=== PATIENT | male | born 1955 | race African-American/Black ===

== ENCOUNTER 2017-05-12 10:32 | Emergency (ER) | payer MEDICAID ==
[~2017-05-12] VITALS: Ht 162.6 cm; Wt 79.8 kg
[~2017-05-12 10:32] MED LIST: ASPI81TA43 PO; CARI250T PO; GLIP-115 PO; METO25TA5 PO; NIFEDICAL XL PO; OXYC10TA44 PO; PRAVASTATIN PO; RANI-226 PO
[2017-05-12 13:16] VITALS: BP 119/71
== END 2017-05-12 13:38 | disposition home or self-care (01) ==
LOC: ER 10:32
DX: R05 Cough (principal); R06.02 Shortness of breath; R50.9 Fever, unspecified; R51 Headache; J44.9 Chronic obstructive pulmonary disease, unspecified; E11.9 Type 2 diabetes mellitus without complications; I10 Essential (primary) hypertension; I25.2 Old myocardial infarction; E78.5 Hyperlipidemia, unspecified; F17.210 Nicotine dependence, cigarettes, uncomplicated; Z95.1 Presence of aortocoronary bypass graft; Z95.0 Presence of cardiac pacemaker
CPT/HCPCS: 71046

== ENCOUNTER → 2018-11-05 | Outpatient (CLI) | payer OTHER, MEDICAID ==
[~2018-11-05] VITALS: Ht 167.6 cm; Wt 81.6 kg
[~2018-11-05] MED LIST changes: -GLIP-115 PO; +GLIP5TAB12 PO
== END | disposition home or self-care (01) ==
LOC: Rad HDHVI 07:57
PROVIDERS: ATTEND Internal Medicine Cardiovascular Disease
DX: R07.9 Chest pain, unspecified (principal); M54.9 Dorsalgia, unspecified
CPT/HCPCS: 78472; 96374; 96375; A9505

== ENCOUNTER 2020-02-04 14:46 | Emergency (ER) | payer OTHER, MEDICAID ==
[~2020-02-04] VITALS: Ht 167.6 cm; Wt 83.9 kg
[2020-02-04 14:52] VITALS: BP 122/82
[2020-02-04 15:39] LABS: Albumin 3.9 g/dL (3.4-5.0); Calcium 8.5 mg/dL (8.5-10.1); Chloride 110 mmol/L (98-107); Potassium 4.2 mmol/L (3.5-5.1); Sodium 139 mmol/L (136-145)
[2020-02-04 15:42] LABS: Basophils # (auto) 0 10 ^3/uL (0-0.2); Basophils % (auto) 0.7 % (0.0-2.0); Eosinophils # (auto) 0.1 10 ^3/uL (0-0.8); Eosinophils % (auto) 2.1 % (0.0-7.0); Hematocrit 42.5 % (41.0-53.0); Hemoglobin 14.6 g/dL (13.5-17.5); Lymphocytes % (auto) 46.2 % (10.0-50.0); Mean Corpuscular Hemoglobin 32.5 pg (28.0-32.0); Mean Corpuscular Hgb Conc. 34.5 g/dL (32.0-36.0); Mean Corpuscular Volume 94.3 fL (80.0-100.0); Monocytes # (auto) 0.5 10 ^3/uL (0-1.3); Monocytes % (auto) 10.6 % (0.0-12.0); Neutrophils # (auto) 1.7 10 ^3/uL (1.6-8.6); Neutrophils % (auto) 40.4 % (37.0-80.0); Nucleated Red Blood Cells % 0.4 %; Platelet Count (auto) 217 10^3/uL (140-450); Red Cell Distribution Width 13.8 % (11.8-14.3); White Blood Cell 4.3 10^3/uL (4.4-10.8)
[2020-02-04 15:47] LABS: Alanine Aminotransferase 19 U/L (16-61); Alkaline Phosphatase 81 U/L (45-117); Anion Gap 5 (5-15); Aspartate Aminotransferase 14 U/L (15-37); BUN/Creatinine Ratio 10.8; Bilirubin, Total 0.4 mg/dL (0.2-1.0); Blood Urea Nitrogen 13 mg/dL (7-18); Carbon Dioxide 24 mmol/L (21-32); GFR African American 78 mL/min; GFR Non-African American 64 mL/min; Glucose 107 mg/dL (74-106); Magnesium 2.3 mg/dL (1.6-2.6); Total Protein 7.6 g/dL (6.4-8.2)
== END 2020-02-04 17:39 | disposition left against medical advice (07) ==
LOC: EDBD 14:46 → EDUNIT# 14:46 → ER 14:46
DX: I50.33 Acute on chronic diastolic (congestive) heart failure (principal); I24.9 Acute ischemic heart disease, unspecified; I10 Essential (primary) hypertension; J44.9 Chronic obstructive pulmonary disease, unspecified; E78.5 Hyperlipidemia, unspecified; F17.210 Nicotine dependence, cigarettes, uncomplicated; Z98.61 Coronary angioplasty status; Z88.0 Allergy status to penicillin
CPT/HCPCS: 36415; 71045; 80053; 83735; 84484; 85025; 93005; 99291

== ENCOUNTER 2021-10-10 09:54 | Inpatient (IN) | payer OTHER, MEDICAID ==
[~2021-10-10] VITALS: Ht 162.6 cm; Wt 85.5 kg
[2021-10-10 10:34] LABS: Basophils # (auto) 0.1 10 ^3/uL (0-0.2); Basophils % (auto) 1.3 % (0.0-2.0); Eosinophils # (auto) 0.1 10 ^3/uL (0-0.8); Eosinophils % (auto) 1.1 % (0.0-7.0); Hematocrit 45.6 % (41.0-53.0); Lymphocytes # (auto) 2.4 10 ^3/uL (0.4-5.4); Lymphocytes % (auto) 39.8 % (10.0-50.0); Mean Corpuscular Hemoglobin 32.1 pg (28.0-32.0); Mean Corpuscular Volume 91.7 fL (80.0-100.0); Monocytes # (auto) 0.5 10 ^3/uL (0-1.3); Monocytes % (auto) 7.7 % (0.0-12.0); Neutrophils % (auto) 50.1 % (37.0-80.0); Nucleated Red Blood Cells % 0.1 %; Red Blood Cells 4.97 10^6/uL (4.5-5.90); Red Cell Distribution Width 13.5 % (11.8-14.3)
[2021-10-10 10:50] LABS: Partial Thromboplastin Time 26.2 sec (23.6-33.0)
[2021-10-10] MEDS ORDERED: ONDANSETRON HCL 4 MG/2 ML VIAL IV ONE (11:15)
[2021-10-10] MEDS ORDERED: MORPHINE SULFATE 4 MG/ML SYR/VIAL IV ONE (11:15)
[2021-10-10 11:55] LABS: Albumin 3.7 g/dL (3.4-5.0); Calcium 8.8 mg/dL (8.5-10.1)
[2021-10-10 11:58] LABS: BUN/Creatinine Ratio 12.3; Bilirubin, Total 0.2 mg/dL (0.2-1.0); Total Protein 8.1 g/dL (6.4-8.2)
[2021-10-10] MEDS ORDERED: IOHEXOL 350 MG/ML 100ML IJ ONE (16:13)
[2021-10-10] MEDS ORDERED: MORPHINE SULFATE INJ 2 MG/ml SYRG IV PRN ×2 (16:15→19:15)
[2021-10-10] MEDS ORDERED: LABETALOL HCL 5 MG/ML 4ML SYRINGE IV ONE (16:15)
[2021-10-10] MEDS ORDERED: NITROGLYCERIN 0.4 MG SL TAB SL PRN (16:15)
[2021-10-10] MEDS ORDERED: DEXTROSE (50%) 50ML SYRG IV PRN (19:15)
[2021-10-10] MEDS ORDERED: ONDANSETRON HCL 4 MG/2 ML VIAL IV PRN (19:15)
[2021-10-10] MEDS ORDERED: PROMETHAZINE-DM 5 ML ORAL SYRUP PO PRN (19:15)
[2021-10-10] MEDS ORDERED: LABETALOL HCL 5 MG/ML 4ML SYRINGE IV PRN (19:15)
[2021-10-10] MEDS ORDERED: DOCUSATE SOD 100 MG CAP PO PRN (19:15)
[2021-10-10] MEDS ORDERED: BENAZEPRIL HCL 10 MG TAB PO ONE (19:15)
[2021-10-10] MEDS ORDERED: LORazepam 0.5 MG TAB PO PRN (19:15)
[2021-10-10] MEDS ORDERED: METOPROLOL SUCCINATE XL 50 MG TAB PO ONE (19:15)
[2021-10-10 19:47] LABS: Magnesium 2.3 mg/dL (1.6-2.6); Phosphorus 2.9 mg/dL (2.5-4.90)
[2021-10-10 20:49] LABS: INR 1.04 (0.9-1.15); Partial Thromboplastin Time 27.6 sec (23.6-33.0)
[2021-10-10] MEDS: ACETAMINOPHEN 325 MG TAB PO PRN (20:53)
[2021-10-10 21:44] VITALS: BP 164/87
[2021-10-10] MEDS: InsuLIN REG 1unit/0.01ml Soln (100units/ml) SC SCH (22:00)
[2021-10-10] MEDS: ATORVASTATIN 20 MG TAB PO SCH (22:06)
[2021-10-10] MEDS: ACCU-CHEK COMFORT CURVE STRIP VI SCH (22:06)
[2021-10-10] MEDS: hydrALAZINE HCL 20 MG/ML VL IV PRN (22:06)
[2021-10-10] MEDS: IPRATROPIUM BROM 0.5 MG/2.5ML INH SOL NEB SCH (22:06)
[2021-10-10] MEDS: HYDROcodone-ACET 5/325MG TAB PO PRN (22:14)
[2021-10-10 22:34] VITALS: BP 164/87
[2021-10-11] VITALS (7 sets, daily range): BP systolic 132–154; BP diastolic 69–95
[2021-10-11] MEDS: IPRATROPIUM BROM 0.5 MG/2.5ML INH SOL NEB SCH ×6 (02:00→22:45)
[2021-10-11 06:26] LABS: Potassium 3.8 mmol/L (3.5-5.1)
[2021-10-11 06:31] LABS: INR 1.08 (0.9-1.15); Partial Thromboplastin Time 29.4 sec (23.6-33.0)
[2021-10-11] MEDS: InsuLIN REG 1unit/0.01ml Soln (100units/ml) SC SCH ×4 (06:31→21:12)
[2021-10-11] MEDS: ACCU-CHEK COMFORT CURVE STRIP VI SCH ×4 (06:31→22:07)
[2021-10-11 06:37] LABS: Albumin 3.2 g/dL (3.4-5.0); BUN/Creatinine Ratio 11.3; Bilirubin, Total 0.4 mg/dL (0.2-1.0); CRP High Sensitivity 0.57 mg/dL (< 0.3); Calcium 8.3 mg/dL (8.5-10.1); Phosphorus 3.2 mg/dL (2.5-4.90); Uric Acid 6.3 mg/dL (3.5-7.2)
[2021-10-11] MEDS: HYDROcodone-ACET 5/325MG TAB PO PRN (06:40)
[2021-10-11 06:57] LABS: Basophils # (auto) 0.1 10 ^3/uL (0-0.2); Basophils % (auto) 1.5 % (0.0-2.0); Eosinophils # (auto) 0.1 10 ^3/uL (0-0.8); Eosinophils % (auto) 1.3 % (0.0-7.0); Hematocrit 43.2 % (41.0-53.0); Hemoglobin 15.1 g/dL (13.5-17.5); Lymphocytes # (auto) 2.6 10 ^3/uL (0.4-5.4); Lymphocytes % (auto) 49.1 % (10.0-50.0); Mean Corpuscular Hgb Conc. 34.9 g/dL (32.0-36.0); Mean Corpuscular Volume 91.5 fL (80.0-100.0); Monocytes # (auto) 0.5 10 ^3/uL (0-1.3); Monocytes % (auto) 8.9 % (0.0-12.0); Neutrophils # (auto) 2.1 10 ^3/uL (1.6-8.6); Neutrophils % (auto) 39.2 % (37.0-80.0); Nucleated Red Blood Cells % 0.1 %; Red Blood Cells 4.71 10^6/uL (4.5-5.90); White Blood Cell 5.4 10^3/uL (4.4-10.8)
[2021-10-11] MEDS: ASPirin-EC 81 mg tab PO SCH (09:26)
[2021-10-11] MEDS: METOPROLOL SUCCINATE XL 50 MG TAB PO SCH (09:27)
[2021-10-11] MEDS: ENOXAPARIN SOD 40 MG/0.4 ML SYRINGE SC SCH (09:28)
[2021-10-11] MEDS: BENAZEPRIL HCL 10 MG TAB PO SCH (09:28)
[2021-10-11] MEDS ORDERED: FAMOTIDINE (10MG/ML) 2ML VL IV SCH (10:00)
[2021-10-11 10:03] LABS: Urine Bacteria NONE SEEN /hpf (None Seen); Urine Blood Negative /uL (Negative); Urine Specific Gravity 1.029 (1.001-1.035); Urine WBC 3 /hpf (0 - 3)
[2021-10-11 10:14] LABS: Alcohol, Urine < 3.0 mg/dL (0-10); Amphetamine Screen, Urine NEGATIVE (NEGATIVE); Barbiturate Scree,Urine NEGATIVE (NEGATIVE); Benzodiazephine Screen, Urine NEGATIVE (NEGATIVE); Cannabinoid Screen, Urine NEGATIVE (NEGATIVE); Cocaine Screen, Urine NEGATIVE (NEGATIVE); Opiate Scree,Urine POSITIVE (NEGATIVE); Phencyclidine Screen, Urine NEGATIVE (NEGATIVE); Protein, Urine 13.3 mg/dL (0.0-11.9)
[2021-10-11] MEDS ORDERED: CLOP75TA70 PO (15:57)
[2021-10-11] MEDS ORDERED: PREG75CA PO (16:00)
[2021-10-11] MEDS ORDERED: ATOR40TA52 PO (16:00)
[2021-10-11] MEDS ORDERED: CIPR250T3 PO (16:01)
[2021-10-11] MEDS ORDERED: NIFE1TAB30 PO (16:01)
[2021-10-11] MEDS ORDERED: NITR0.4S29 SL (16:04)
[2021-10-11] MEDS ORDERED: ZONI25CA3 PO (16:06)
[2021-10-11] MEDS ORDERED: PERCOT PO (16:06)
[2021-10-11] MEDS ORDERED: ISOS1TAB28 PO (16:07)
[2021-10-11] MEDS ORDERED: FURO40TA4 PO (16:07)
[2021-10-11] MEDS ORDERED: DICY20TA PO (16:08)
[2021-10-11] MEDS: RANOLAZINE ER 500 MG TAB PO SCH ×2 (16:38→21:12)
[2021-10-11] MEDS: ACETAMINOPHEN 325 MG TAB PO PRN (21:12)
[2021-10-11] MEDS: ATORVASTATIN 20 MG TAB PO SCH (21:14)
[2021-10-11] MEDS: hydrALAZINE HCL 20 MG/ML VL IV PRN (22:07)
[2021-10-12 04:49] VITALS: BP 130/76
[2021-10-12] MEDS: IPRATROPIUM BROM 0.5 MG/2.5ML INH SOL NEB SCH ×4 (05:48→14:00)
[2021-10-12] MEDS: InsuLIN REG 1unit/0.01ml Soln (100units/ml) SC SCH ×2 (06:00→11:30)
[2021-10-12] MEDS: ACCU-CHEK COMFORT CURVE STRIP VI SCH ×2 (06:00→11:40)
[2021-10-12 06:02] LABS: Calcium 8.3 mg/dL (8.5-10.1)
[2021-10-12 06:05] LABS: BUN/Creatinine Ratio 12.4
[2021-10-12 08:00] VITALS: BP 142/74
[2021-10-12] MEDS: RANOLAZINE ER 500 MG TAB PO SCH (09:50)
[2021-10-12] MEDS: METOPROLOL SUCCINATE XL 50 MG TAB PO SCH (09:51)
[2021-10-12] MEDS: ASPirin-EC 81 mg tab PO SCH (09:51)
[2021-10-12] MEDS: BENAZEPRIL HCL 10 MG TAB PO SCH (09:51)
[2021-10-12] MEDS: HYDROcodone-ACET 5/325MG TAB PO PRN (09:53)
[2021-10-12] MEDS: ENOXAPARIN SOD 40 MG/0.4 ML SYRINGE SC SCH (09:53)
[2021-10-12 12:00] VITALS: BP 146/87
[2021-10-12] MEDS ORDERED: RANO500T2 PO (12:25)
[2021-10-12 14:26] VITALS: BP 146/87
== END 2021-10-12 15:25 | disposition home or self-care (01) | DRG 302 ==
LOC: ER 09:54 → TELE 16:08 → TELE-EAST 21:10
PROVIDERS: ADMIT Hospitalist; ATTEND Internal Medicine
DX: I25.810 Atherosclerosis of coronary artery bypass graft(s) without angina pectoris (principal); I50.43 Acute on chronic combined systolic (congestive) and diastolic (congestive) heart failure; I11.0 Hypertensive heart disease with heart failure; E78.5 Hyperlipidemia, unspecified; K21.9 Gastro-esophageal reflux disease without esophagitis; E66.9 Obesity, unspecified; I25.5 Ischemic cardiomyopathy; E11.9 Type 2 diabetes mellitus without complications; M79.602 Pain in left arm; Z20.822 Contact with and (suspected) exposure to COVID-19; J43.9 Emphysema, unspecified; F17.210 Nicotine dependence, cigarettes, uncomplicated; Z82.49 Family history of ischemic heart disease and other diseases of the circulatory system; I25.2 Old myocardial infarction; Z79.84 Long term (current) use of oral hypoglycemic drugs; Z80.42 Family history of malignant neoplasm of prostate; Z83.3 Family history of diabetes mellitus; Z95.0 Presence of cardiac pacemaker; Z98.61 Coronary angioplasty status; Z79.899 Other long term (current) drug therapy; Z88.0 Allergy status to penicillin; Z68.32 Body mass index [BMI] 32.0-32.9, adult
CPT/HCPCS: 36415; 71045; 71275; 80048; 80053; 80061; 80307; 81001; 82550; 82728; 82962; 83036; 83615; 83690; 83735; 83880; 84100; 84156; 84439; 84443; 84484; 84550; 85025; 85379; 85610; 85652; 85730; 86141; 87040; 87077; 93005; 93306; 94640; 96374; 96375; G0378; J2405; J3490

== ENCOUNTER 2022-07-09 06:59 | Day surgery (SDC) | payer OTHER, MEDICAID ==
[~2022-07-09] VITALS: Ht 162.6 cm; Wt 83.5 kg
[2022-07-09] VITALS (8 sets, daily range): BP systolic 99–120; BP diastolic 62–77
[~2022-07-09 06:59] MED LIST changes: -ASPI81TA43 PO; +ATOR40TA52 PO; +BACL10TA PO; -CARI250T PO; +CLOP75TA70 PO; +FURO40TA4 PO; -GLIP5TAB12 PO; +METO-158 PO; -METO25TA5 PO; +NIFE1TAB30 PO; -NIFEDICAL XL PO; -PRAVASTATIN PO; +PREG75CA PO; -RANI-226 PO
[2022-07-09] MEDS ORDERED: VERAPAMIL 2.5MG/ML INJ 2ML VIAL IV ONE (07:42)
[2022-07-09] MEDS ORDERED: ANGIOMAX 250 MG VIAL IV ONE (07:42)
[2022-07-09] MEDS ORDERED: HEPARIN SODIUM (PORCINE) 5000 UNITS/ML 1ML VIAL ONE (07:42)
[2022-07-09] MEDS ORDERED: fentaNYL CITRATE 100 MCG/2 ML VL ONE ×2 (07:43→08:59)
[2022-07-09] MEDS ORDERED: LIDOCAINE 2%HCL (LOCAL ANESTH.) INJ 10ml MDV ONE (07:43)
[2022-07-09] MEDS ORDERED: MIDAZOLAM HCL 2MG/2ML 2ml VIAL (1mg/ml) ONE ×2 (07:43→08:59)
[2022-07-09] MEDS ORDERED: SODIUM CHL 0.9% 0 ML ONE (07:43)
[2022-07-09] MEDS ORDERED: IODIXANOL 320MG/ML 100ML BTL IV ONE ×4 (07:44→08:50)
== END 2022-07-09 11:08 | disposition home or self-care (01) ==
LOC: CATH 06:59
PROVIDERS: ATTEND Internal Medicine Cardiovascular Disease
DX: R94.39 Abnormal result of other cardiovascular function study (principal); I25.10 Atherosclerotic heart disease of native coronary artery without angina pectoris; I25.5 Ischemic cardiomyopathy; I11.0 Hypertensive heart disease with heart failure; I50.9 Heart failure, unspecified; E78.5 Hyperlipidemia, unspecified; Z20.822 Contact with and (suspected) exposure to COVID-19; Z79.899 Other long term (current) drug therapy; Z98.890 Other specified postprocedural states; J43.9 Emphysema, unspecified; Z95.0 Presence of cardiac pacemaker; Z95.1 Presence of aortocoronary bypass graft
CPT/HCPCS: 93459; C1894; J1644; J2001; J2250; J3010; Q9967; U0003; 93005; 99152; 99153

== ENCOUNTER 2022-07-12 20:17 | Inpatient (IN) | payer OTHER, MEDICAID ==
[~2022-07-12] VITALS: Ht 162.6 cm; Wt 84.0 kg
[2022-07-12] MEDS ORDERED: ONDANSETRON HCL 4 MG/2 ML VIAL IV ONE (20:45)
[2022-07-12] MEDS ORDERED: MORPHINE SULFATE 4 MG/ML SYR/VIAL IV ONE (20:45)
[2022-07-12] MEDS ORDERED: IOHEXOL 300 MG/ML 100ML BOTTLE IJ ONE (20:51)
[2022-07-12 21:07] LABS: Basophils # (auto) 0.1 10 ^3/uL (0-0.2); Basophils % (auto) 0.8 % (0.0-2.0); Eosinophils # (auto) 0 10 ^3/uL (0-0.8); Eosinophils % (auto) 0.4 % (0.0-7.0); Hematocrit 44.7 % (41.0-53.0); Hemoglobin 15.7 g/dL (13.5-17.5); Lymphocytes # (auto) 1.7 10 ^3/uL (0.4-5.4); Lymphocytes % (auto) 25.1 % (10.0-50.0); Mean Corpuscular Hemoglobin 32.3 pg (28.0-32.0); Mean Corpuscular Hgb Conc. 35.1 g/dL (32.0-36.0); Mean Corpuscular Volume 91.9 fL (80.0-100.0); Monocytes # (auto) 0.5 10 ^3/uL (0-1.3); Monocytes % (auto) 7.7 % (0.0-12.0); Neutrophils # (auto) 4.5 10 ^3/uL (1.6-8.6); Nucleated Red Blood Cells % 0.2 %; Red Blood Cells 4.86 10^6/uL (4.5-5.90); Red Cell Distribution Width 13.3 % (11.8-14.3); White Blood Cell 6.8 10^3/uL (4.4-10.8)
[2022-07-12 21:19] LABS: Albumin 3.4 g/dL (3.4-5.0); Calcium 8.7 mg/dL (8.5-10.1); Magnesium 2.1 mg/dL (1.6-2.6)
[2022-07-12 21:23] LABS: BUN/Creatinine Ratio 14.7; Bilirubin, Total 0.3 mg/dL (0.2-1.0); Total Protein 7.8 g/dL (6.4-8.2)
[2022-07-13] MEDS ORDERED: HEPARIN SODIUM (PORCINE) 5000 UNITS/ML 1ML VIAL IV ONE (00:15)
[2022-07-13 01:12] LABS: INR 1.01 (0.9-1.15)
[2022-07-13] MEDS: HEPARIN DRIP/D5W 100UNITS/ML 250 ML IV SCH (01:15)
[2022-07-13] MEDS ORDERED: ONDANSETRON HCL 4 MG/2 ML VIAL IV ONE (01:30)
[2022-07-13] MEDS ORDERED: MORPHINE SULFATE 4 MG/ML SYR/VIAL IV ONE (01:30)
[2022-07-13] MEDS ORDERED: ACETAMINOPHEN 325 MG TAB PO PRN (03:00)
[2022-07-13] MEDS ORDERED: HYDROcodone-ACET 5/325MG TAB PO PRN (03:00)
[2022-07-13] MEDS ORDERED: DEXTROSE (50%) 50ML SYRG IV PRN (03:00)
[2022-07-13] MEDS ORDERED: DOCUSATE SOD 100 MG CAP PO PRN (03:00)
[2022-07-13] MEDS ORDERED: hydrALAZINE HCL 20 MG/ML VL IV PRN (03:00)
[2022-07-13] MEDS: SODIUM CHLORIDE 0.9% 1,000 ML IV SCH ×3 (03:22→23:25)
[2022-07-13 04:06] LABS: Basophils # (auto) 0.2 10 ^3/uL (0-0.2); Basophils % (auto) 2.4 % (0.0-2.0); Eosinophils # (auto) 0.1 10 ^3/uL (0-0.8); Eosinophils % (auto) 0.6 % (0.0-7.0); Hematocrit 41.2 % (41.0-53.0); Hemoglobin 14.7 g/dL (13.5-17.5); Lymphocytes # (auto) 3.1 10 ^3/uL (0.4-5.4); Mean Corpuscular Hemoglobin 32.8 pg (28.0-32.0); Mean Corpuscular Hgb Conc. 35.7 g/dL (32.0-36.0); Mean Corpuscular Volume 91.8 fL (80.0-100.0); Monocytes # (auto) 0.7 10 ^3/uL (0-1.3); Monocytes % (auto) 8.2 % (0.0-12.0); Neutrophils # (auto) 4.4 10 ^3/uL (1.6-8.6); Neutrophils % (auto) 51.8 % (37.0-80.0); Nucleated Red Blood Cells % 0.1 %; Red Blood Cells 4.48 10^6/uL (4.5-5.90); Red Cell Distribution Width 13.4 % (11.8-14.3); White Blood Cell 8.4 10^3/uL (4.4-10.8)
[2022-07-13] MEDS ORDERED: NITROGLYCERIN 0.4 MG SL TAB SL PRN (04:30)
[2022-07-13] MEDS ORDERED: MORPHINE SULFATE INJ 2 MG/ml SYRG IV PRN (04:30)
[2022-07-13 04:31] LABS: Albumin 3.2 g/dL (3.4-5.0); BUN/Creatinine Ratio 12.4; Calcium 8.7 mg/dL (8.5-10.1); Potassium 4.3 mmol/L (3.5-5.1)
[2022-07-13 04:34] LABS: Bilirubin, Total 0.3 mg/dL (0.2-1.0); Total Protein 7.3 g/dL (6.4-8.2)
[2022-07-13] MEDS: InsuLIN REG 1unit/0.01ml Soln (100units/ml) SC SCH ×4 (06:07→22:00)
[2022-07-13] MEDS: ACCU-CHEK COMFORT CURVE STRIP VI SCH ×4 (06:07→23:28)
[2022-07-13] MEDS: ONDANSETRON HCL 4 MG/2 ML VIAL IV PRN ×2 (08:33→20:14)
[2022-07-13] MEDS: MORPHINE SULFATE INJ 2 MG/ml SYRG IV PRN ×2 (08:35→20:14)
[2022-07-13 14:16] LABS: INR 1.03 (0.9-1.15); Partial Thromboplastin Time 58.1 sec (24.6-33.4)
[2022-07-13] MEDS ORDERED: BACLOFEN 10 MG TAB PO PRN (17:15)
[2022-07-13 20:38] LABS: INR 1.03 (0.9-1.15); Partial Thromboplastin Time 54.7 sec (24.6-33.4)
[2022-07-13] MEDS ORDERED: ASPI-378 PO (21:54)
[2022-07-13 22:00] VITALS: BP 154/72
[2022-07-13] MEDS ORDERED: ATORVASTATIN 20 MG TAB PO SCH (22:00)
[2022-07-13] MEDS: PREGABALIN CAPSULE 75 MG CAP PO SCH (22:00)
[2022-07-13] MEDS: ATORVASTATIN 20 MG TAB PO SCH (23:26)
[2022-07-13] MEDS: METOPROLOL TARTRATE 50 MG TAB PO SCH (23:28)
[2022-07-14] MEDS: HEPARIN DRIP/D5W 100UNITS/ML 250 ML IV SCH (00:15)
[2022-07-14 05:00] VITALS: BP 130/66
[2022-07-14] MEDS: SODIUM CHLORIDE 0.9% 1,000 ML IV SCH (05:00)
[2022-07-14] MEDS: InsuLIN REG 1unit/0.01ml Soln (100units/ml) SC SCH ×4 (07:00→22:00)
[2022-07-14] MEDS: ACCU-CHEK COMFORT CURVE STRIP VI SCH ×4 (07:00→22:00)
[2022-07-14 08:00] VITALS: BP 147/70
[2022-07-14] MEDS: MORPHINE SULFATE INJ 2 MG/ml SYRG IV PRN (08:09)
[2022-07-14] MEDS: METOPROLOL TARTRATE 50 MG TAB PO SCH ×2 (08:09→21:59)
[2022-07-14] MEDS: PANTOPRAZOLE 40 MG TAB PO SCH (08:09)
[2022-07-14] MEDS: NIFEdipine ER 30 MG TAB PO SCH (08:10)
[2022-07-14] MEDS: PREGABALIN CAPSULE 75 MG CAP PO SCH ×2 (08:10→21:59)
[2022-07-14 08:28] LABS: Basophils # (auto) 0 10 ^3/uL (0-0.2); Basophils % (auto) 0.7 % (0.0-2.0); Eosinophils # (auto) 0.1 10 ^3/uL (0-0.8); Eosinophils % (auto) 1.9 % (0.0-7.0); Hematocrit 40.7 % (41.0-53.0); Hemoglobin 13.9 g/dL (13.5-17.5); Lymphocytes # (auto) 2.3 10 ^3/uL (0.4-5.4); Lymphocytes % (auto) 45.5 % (10.0-50.0); Mean Corpuscular Hemoglobin 32.3 pg (28.0-32.0); Mean Corpuscular Hgb Conc. 34.2 g/dL (32.0-36.0); Mean Corpuscular Volume 94.3 fL (80.0-100.0); Monocytes # (auto) 0.5 10 ^3/uL (0-1.3); Monocytes % (auto) 9.7 % (0.0-12.0); Neutrophils # (auto) 2.2 10 ^3/uL (1.6-8.6); Neutrophils % (auto) 42.2 % (37.0-80.0); Nucleated Red Blood Cells % 0.1 %; Red Blood Cells 4.31 10^6/uL (4.5-5.90); Red Cell Distribution Width 13.1 % (11.8-14.3); White Blood Cell 5.2 10^3/uL (4.4-10.8)
[2022-07-14 08:52] LABS: Albumin 3.1 g/dL (3.4-5.0); BUN/Creatinine Ratio 12.3; Bilirubin, Total 0.4 mg/dL (0.2-1.0); Calcium 8.3 mg/dL (8.5-10.1); Total Protein 6.7 g/dL (6.4-8.2)
[2022-07-14 09:06] LABS: INR 1.01 (0.9-1.15)
[2022-07-14 09:16] LABS: Partial Thromboplastin Time 106.1 sec (24.6-33.4)
[2022-07-14] MEDS ORDERED: HEPARIN DRIP/D5W 100UNITS/ML 250 ML IV SCH ×2 (10:30→17:00)
[2022-07-14 11:53] VITALS: BP 131/68
[2022-07-14] MEDS: OXYCODONE W/ ACETAMINOPHEN 5/325MG TABLET PO PRN (15:39)
[2022-07-14 16:00] VITALS: BP 123/55
[2022-07-14 16:06] LABS: INR 1.02 (0.9-1.15); Partial Thromboplastin Time 32.4 sec (24.6-33.4)
[2022-07-14] MEDS ORDERED: HEPARIN SODIUM (PORCINE) 5000 UNITS/ML 1ML VIAL IV ONE (17:00)
[2022-07-14 22:00] VITALS: BP 108/61
[2022-07-14] MEDS: ATORVASTATIN 20 MG TAB PO SCH (22:00)
[2022-07-15 01:36] LABS: INR 1.01 (0.9-1.15)
[2022-07-15 01:40] LABS: Partial Thromboplastin Time > 139.0 sec (24.6-33.4)
[2022-07-15] MEDS: OXYCODONE W/ ACETAMINOPHEN 5/325MG TABLET PO PRN ×2 (01:53→20:23)
[2022-07-15] MEDS ORDERED: HEPARIN DRIP/D5W 100UNITS/ML 250 ML IV SCH (02:40)
[2022-07-15 05:00] VITALS: BP 120/68
[2022-07-15 05:27] LABS: Basophils # (auto) 0.1 10 ^3/uL (0-0.2); Basophils % (auto) 1.1 % (0.0-2.0); Eosinophils # (auto) 0.2 10 ^3/uL (0-0.8); Hematocrit 38.1 % (41.0-53.0); Hemoglobin 13.4 g/dL (13.5-17.5); Lymphocytes # (auto) 2.6 10 ^3/uL (0.4-5.4); Lymphocytes % (auto) 49.2 % (10.0-50.0); Mean Corpuscular Hemoglobin 32.4 pg (28.0-32.0); Mean Corpuscular Hgb Conc. 35.2 g/dL (32.0-36.0); Mean Corpuscular Volume 92.1 fL (80.0-100.0); Monocytes # (auto) 0.6 10 ^3/uL (0-1.3); Monocytes % (auto) 11.6 % (0.0-12.0); Neutrophils # (auto) 1.8 10 ^3/uL (1.6-8.6); Neutrophils % (auto) 35.1 % (37.0-80.0); Nucleated Red Blood Cells % 0.3 %; Red Blood Cells 4.13 10^6/uL (4.5-5.90); Red Cell Distribution Width 13.2 % (11.8-14.3); White Blood Cell 5.2 10^3/uL (4.4-10.8)
[2022-07-15] MEDS: InsuLIN REG 1unit/0.01ml Soln (100units/ml) SC SCH ×4 (06:02→22:00)
[2022-07-15] MEDS: ACCU-CHEK COMFORT CURVE STRIP VI SCH ×4 (06:02→22:21)
[2022-07-15 09:00] VITALS: BP 130/71
[2022-07-15] MEDS: NIFEdipine ER 30 MG TAB PO SCH (10:12)
[2022-07-15] MEDS: PREGABALIN CAPSULE 75 MG CAP PO SCH ×2 (10:12→22:13)
[2022-07-15] MEDS: METOPROLOL TARTRATE 50 MG TAB PO SCH ×2 (10:14→22:14)
[2022-07-15] MEDS: PANTOPRAZOLE 40 MG TAB PO SCH (10:14)
[2022-07-15 11:29] LABS: INR 1.03 (0.9-1.15); Partial Thromboplastin Time 60.3 sec (24.6-33.4)
[2022-07-15 13:28] VITALS: BP 129/76
[2022-07-15 16:11] LABS: INR 1.01 (0.9-1.15); Partial Thromboplastin Time 45.3 sec (24.6-33.4)
[2022-07-15 17:12] VITALS: BP 136/74
[2022-07-15] MEDS: HEPARIN DRIP/D5W 100UNITS/ML 250 ML IV SCH (17:30)
[2022-07-15 21:02] VITALS: BP 131/78
[2022-07-15] MEDS: SODIUM CHLORIDE 0.9% 1,000 ML IV SCH (21:40)
[2022-07-15] MEDS: ATORVASTATIN 20 MG TAB PO SCH (22:14)
[2022-07-16 00:04] LABS: INR 1.03 (0.9-1.15); Partial Thromboplastin Time 56.7 sec (24.6-33.4)
[2022-07-16 04:48] VITALS: BP 122/65
[2022-07-16 06:33] LABS: INR 1.05 (0.9-1.15)
[2022-07-16 06:39] LABS: Partial Thromboplastin Time 70.9 sec (24.6-33.4)
[2022-07-16] MEDS: InsuLIN REG 1unit/0.01ml Soln (100units/ml) SC SCH ×4 (06:44→22:00)
[2022-07-16] MEDS: ACCU-CHEK COMFORT CURVE STRIP VI SCH ×4 (06:44→22:18)
[2022-07-16 09:00] VITALS: BP 123/66
[2022-07-16] MEDS ORDERED: TEMAZEPAM 15 MG CAP PO PRN (10:15)
[2022-07-16] MEDS: NIFEdipine ER 30 MG TAB PO SCH (10:25)
[2022-07-16] MEDS: OXYCODONE W/ ACETAMINOPHEN 5/325MG TABLET PO PRN (10:26)
[2022-07-16] MEDS: METOPROLOL TARTRATE 50 MG TAB PO SCH ×2 (10:27→22:18)
[2022-07-16] MEDS: PANTOPRAZOLE 40 MG TAB PO SCH (10:27)
[2022-07-16] MEDS: PREGABALIN CAPSULE 75 MG CAP PO SCH ×2 (10:27→22:18)
[2022-07-16 11:09] LABS: INR 1.05 (0.9-1.15); Partial Thromboplastin Time 62.1 sec (24.6-33.4)
[2022-07-16 13:21] VITALS: BP 132/80
[2022-07-16 17:28] VITALS: BP 131/67
[2022-07-16] MEDS: HEPARIN DRIP/D5W 100UNITS/ML 250 ML IV SCH (17:34)
[2022-07-16 22:00] VITALS: BP 133/76
[2022-07-16] MEDS: ATORVASTATIN 20 MG TAB PO SCH (22:17)
[2022-07-17] MEDS: OXYCODONE W/ ACETAMINOPHEN 5/325MG TABLET PO PRN ×2 (01:14→10:10)
[2022-07-17 05:00] VITALS: BP 122/70
[2022-07-17 05:38] LABS: Basophils # (auto) 0 10 ^3/uL (0-0.2); Basophils % (auto) 0.6 % (0.0-2.0); Eosinophils # (auto) 0.1 10 ^3/uL (0-0.8); Eosinophils % (auto) 2.1 % (0.0-7.0); Hematocrit 39.9 % (41.0-53.0); Hemoglobin 14.1 g/dL (13.5-17.5); Lymphocytes # (auto) 2.7 10 ^3/uL (0.4-5.4); Lymphocytes % (auto) 46.1 % (10.0-50.0); Mean Corpuscular Hemoglobin 32.4 pg (28.0-32.0); Mean Corpuscular Hgb Conc. 35.3 g/dL (32.0-36.0); Mean Corpuscular Volume 91.8 fL (80.0-100.0); Monocytes # (auto) 0.6 10 ^3/uL (0-1.3); Monocytes % (auto) 10.6 % (0.0-12.0); Neutrophils # (auto) 2.4 10 ^3/uL (1.6-8.6); Neutrophils % (auto) 40.6 % (37.0-80.0); Nucleated Red Blood Cells % 0.1 %; Red Blood Cells 4.35 10^6/uL (4.5-5.90); Red Cell Distribution Width 13.5 % (11.8-14.3); White Blood Cell 5.9 10^3/uL (4.4-10.8)
[2022-07-17 05:57] LABS: Calcium 8.7 mg/dL (8.5-10.1); Potassium 4.5 mmol/L (3.5-5.1)
[2022-07-17 05:59] LABS: BUN/Creatinine Ratio 18.5 (10.0-20.0)
[2022-07-17 06:05] LABS: INR 1.03 (0.9-1.15)
[2022-07-17 06:18] LABS: Partial Thromboplastin Time 70.3 sec (24.6-33.4)
[2022-07-17] MEDS: InsuLIN REG 1unit/0.01ml Soln (100units/ml) SC SCH ×2 (06:25→11:30)
[2022-07-17] MEDS: ACCU-CHEK COMFORT CURVE STRIP VI SCH ×2 (06:25→11:30)
[2022-07-17] MEDS ORDERED: MIDAZOLAM HCL 2MG/2ML 2ml VIAL (1mg/ml) IV ONE (07:30)
[2022-07-17] MEDS ORDERED: fentaNYL CITRATE 100 MCG/2 ML VL IV ONE (07:30)
[2022-07-17] MEDS ORDERED: LIDOCAINE VISCOUS 2% 15ML UD MT ONE (07:30)
[2022-07-17] MEDS: PREGABALIN CAPSULE 75 MG CAP PO SCH (10:10)
[2022-07-17] MEDS: PANTOPRAZOLE 40 MG TAB PO SCH (10:12)
[2022-07-17] MEDS: NIFEdipine ER 30 MG TAB PO SCH (10:12)
[2022-07-17] MEDS: METOPROLOL TARTRATE 50 MG TAB PO SCH (10:12)
[2022-07-17] MEDS ORDERED: APIX5TAB PO (11:14)
[2022-07-17 11:17] VITALS: BP 117/66
== END 2022-07-17 12:20 | disposition home or self-care (01) | DRG 815 ==
LOC: ER 20:17 → TELE 07-13 04:22 → TELE-CENTR 07-13 21:15
PROVIDERS: ADMIT Nurse Practitioner Family; ATTEND Nurse Practitioner Acute Care
PROC: 4B02XSZ Measurement of Cardiac Pacemaker, External Approach (ICD-10-PCS; 2022-07-16)
PROC: B24BZZ4 Ultrasonography of Heart with Aorta, Transesophageal (ICD-10-PCS; principal; 2022-07-17)
DX: D73.5 Infarction of spleen (principal); I50.22 Chronic systolic (congestive) heart failure; E11.9 Type 2 diabetes mellitus without complications; E78.5 Hyperlipidemia, unspecified; E88.09 Other disorders of plasma-protein metabolism, not elsewhere classified; G89.29 Other chronic pain; I11.0 Hypertensive heart disease with heart failure; F17.210 Nicotine dependence, cigarettes, uncomplicated; M54.50 Low back pain, unspecified; I25.10 Atherosclerotic heart disease of native coronary artery without angina pectoris; I25.2 Old myocardial infarction; Z95.1 Presence of aortocoronary bypass graft; J44.9 Chronic obstructive pulmonary disease, unspecified; Z79.899 Other long term (current) drug therapy; Z80.42 Family history of malignant neoplasm of prostate; Z82.49 Family history of ischemic heart disease and other diseases of the circulatory system; Z83.3 Family history of diabetes mellitus; Z86.711 Personal history of pulmonary embolism; Z88.0 Allergy status to penicillin; Z20.822 Contact with and (suspected) exposure to COVID-19
CPT/HCPCS: 36415; 71260; 74177; 80048; 80053; 82962; 83735; 83880; 84484; 85025; 85610; 85730; 87426; 93306; 93312; 96374; 96375; 96376; G0378; J2250; J2405